=== PATIENT | female | born 1980 | race Caucasian/White ===

== ENCOUNTER 2019-02-06 00:12 | Emergency (ER) | payer OTHER ==
[~2019-02-06] VITALS: Ht 157.5 cm; Wt 59.0 kg
[2019-02-06 00:15] VITALS: BP 103/85
[2019-02-06] MEDS ORDERED: FLEXERIL PO (00:20)
[2019-02-06] MEDS ORDERED: NUVARING VAGIN1 EACH VG (00:20)
[2019-02-06] MEDS ORDERED: NORCO 5-325 TA1 EAC1 PO (01:17)
[2019-02-06] MEDS ORDERED: SENNA-DOCUSATE1 EAC1 PO (01:17)
== END 2019-02-06 01:15 | disposition home or self-care (01) ==
LOC: ER 00:12
DX: S52.501A Unspecified fracture of the lower end of right radius, initial encounter for closed fracture (principal); W08.XXXA Fall from other furniture, initial encounter; Y93.89 Activity, other specified; Y92.89 Other specified places as the place of occurrence of the external cause; Y99.8 Other external cause status